=== PATIENT | male | born 1975 | race Two or more races ===

== ENCOUNTER 2024-06-05 09:20 | Emergency (ER) | payer OTHER ==
[~2024-06-05] VITALS: Ht 172.7 cm; Wt 80.0 kg
[2024-06-05 09:29] VITALS: TEMP 37.1; O2SAT 100
[2024-06-05] MEDS: HYDROCODONE/ACETAMINOPHEN 5/325MG TABLET PO STA (11:26)
[2024-06-05] MEDS: KETOROLAC 30MG/ML VIAL IM STA ×2 (11:26→14:03)
[2024-06-05] MEDS ORDERED: NAPR-681 PO (13:23)
[2024-06-05] MEDS ORDERED: T3 PO (13:23)
[2024-06-05 14:03] VITALS: BP 172/80; PULSE 90; RESP 18
[2024-06-05 14:04] VITALS: TEMP 98.8
[2024-06-05] MEDS: ACETAMINOPHEN 325MG TABLET PO STA (14:04)
== END 2024-06-05 14:58 | disposition home or self-care (01) ==
LOC: ER 09:20
DX: M54.41 Lumbago with sciatica, right side (principal); Z88.0 Allergy status to penicillin
CPT/HCPCS: 99284; 72100; 96372; J1885